=== PATIENT | male | born 1985 | race Caucasian/White ===

== ENCOUNTER 2017-04-12 15:53 | Emergency (ER) | payer OTHER ==
[~2017-04-12] VITALS: Ht 180.3 cm; Wt 99.8 kg
[2017-04-12] MEDS ORDERED: MELATONIN3 M4 PO (16:10)
[2017-04-12] MEDS ORDERED: BENADRYL25 MG PO (16:10)
[2017-04-12] MEDS ORDERED: VITAMIN D1000 UNI1 PO (16:10)
[2017-04-12] MEDS ORDERED: PRE WORKOUT PO (16:12)
[2017-04-12] MEDS ORDERED: ASPIRIN EC81 M1 PO (16:13)
--- NOTE | 2017-04-12 17:04 | ED NEURO DEFICIT/STROKE ---
History of Present Illness General Chief Complaint: Neuro Symptoms/ Deficit Stated Complaint: LOSS OF SOME VISION, S/P TORO 04/11 Source: patient Exam Limitations: no limitations Allergies Coded Allergies: venom-honey bee (ANAPHYLAXIS 04/12/17) Reconcile Medications Aspirin (Ecotrin*) 81 MG TABLET. 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 STATES HE WAS LIFTING AND SUDDENLY LOST PERIPHERAL VISION IN R EYE - VISION IS NOW 90% IMPROVED BUT PT STATES "STILL OFF". STATES HEADACHE IS BETTER. DENIES ANY OTHER COMPAINTS. WAS SENT TO ED BY DOCTOR COVERING FOR DR ROSARIO. SPEAKING CLEARLY WITH NO DEFICITS NOTED. Triage Nurses Notes Reviewed? yes Onset: Abrupt Duration: day(s): (1), IMPROVED Timing: recent history Altered Sensations: NONE Vision Problem? Yes Glaucoma? No Baseline: alert, oriented x 3 HPI: 31-year-old male comes into emergency room for further evaluation of headache and blurry vision. Patient reports that while weightlifting yesterday he started to experience a moderate to severe headache that occurred over the course of 10-15 minutes. He reports that he was then associated with some blurry peripheral vision out of his right eye. The blurry peripheral vision has improved by about 90% and his headache has resolved. He still reports some residual blurry vision out of the right eye in the periphery. Patient admits to finishing his work out yesterday. Patient was doing a pre-workout drink with associated heavy lifting. He denies any headache currently. Denies any slurring of words or confusion at the moment. Denies any weakness or numbness or tingling. Denies any prior history of this ever happening. Denies any other associated symptoms. (KANNAN GUTIERREZ,JENARO) Vital Signs & Intake/Output Vital Signs & Intake/Output Vital Signs Date Time Temp Pulse Resp B/P B/P Pulse O2 O2 Flow FiO2 Mean Ox Delivery Rate 04/12 1839 98.2 74 16 133/74 98 Room Air 04/12 1728 97 Room Air 04/12 1558 98.8 78 16 139/78 98 Room Air Past History Travel History Traveled to [place] past 21 day No Medical History Any Pertinent Medical History? 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 No (JENARO WALDRON) Review of Systems Review of Systems Constitutional: Reports: no symptoms. EENTM: Reports: see HPI. Respiratory: Reports: no symptoms. Cardiovascular: Reports: no symptoms. GI: Reports: no symptoms. Genitourinary: Reports: no symptoms. Musculoskeletal: Reports: no symptoms. Skin: Reports: no symptoms. Neurological/Psychological: Reports: see HPI. Hematologic/Endocrine: Reports: no symptoms. Immunologic/Allergic: Reports: no symptoms. All Other Systems: Reviewed and Negative (JENARO WALDRON) Physical Exam Physical Exam General Appearance: well developed/nourished, no apparent distress, alert, awake Head: atraumatic, normal appearance Eyes: Bilateral: normal appearance, PERRL, EOMI, other (NORMAL FUNDUSCOPIC EXAM). Ears, Nose, Throat: normal ENT inspection, moist mucous membrane, hearing grossly normal Neck: normal inspection, full range of motion Respiratory: normal breath sounds, no respiratory distress Cardiovascular: regular rate/rhythm Gastrointestinal: normal bowel sounds, soft, non-tender Back: normal inspection, normal range of motion Extremities: normal range of motion Psychiatric: awake, alert, oriented x 3 Cranial Nerves: normal hearing, normal speech, PERRL Coordination/Gait: normal finger to nose, normal gait Motor/Sensory: no motor/sensory deficits Skin: intact, normal color Comments: PERRL, extraocular muscles intact, alert and oriented 3, normal speech, normal gait, no dysmetria, cranial nerves II through XII intact, no pronator drift, 5 out of 5 strength upper and lower extremity, gross sensation intact, no motor deficits, [id number] intact, sharp and dull sensation intact IN fei bilaterally, upper extremities, lower extremity, Core Measures CVA/TIA Diagnosis: No Severe Sepsis Present: No Septic Shock Present: No (JENARO WALDRON) Progress Differential Diagnosis: acute glaucoma, Teixeira's Palsy, drug intoxication, electrolyte imbalance, encephalitis, hypoglycemia, intracranial Hem., intracranial mass/tumor, meningitis, migraine TORO, seizure disorder, stroke, subarachnoid Hem., vertebrobasilar insuff., RETINAL ARTERY HEMORRHAGE, LUCUNAR INFARCT Plan of Care: Orders Procedure Date/time Status CT HEAD WO IV CONTRAST 04/12 1637 Active Diagnostic Imaging: Viewed by Me: CT Scan. Discussed w/RAD: CT Scan. Radiology Impression: SERVICE DATE: 04/12/17 EXAM TYPE: CAT - CT HEAD WO IV CONTRAST EXAMINATION: CT HEAD WITHOUT CONTRAST CLINICAL INFORMATION: AT TIME WHICH HAS SINCE RESOLVED, LINGERING : BLURRING VISION, Presumptive Dx: RIGHT PERIPHERAL VISION BLURRY, R/O BLEED Signs Symptoms: HAPPENED DURING WORK OUT YESTERDAY, HAD SEVERE TORO COMPARISON: None TECHNIQUE: Contiguous axial imaging was performed from the skull base to vertex without intravenous administration of contrast. DLP: 695.14 mGy-cm FINDINGS: There is no evidence of acute intracranial hemorrhage or territorial infarction. No abnormal mass effect or midline shift is seen. Marcos to white matter differentiation is well preserved. No extra-axial fluid collections are identified. The ventricles are normal in size. There is no abnormal attenuation within the brain parenchyma. The osseous structures and soft tissues are normal. The mastoid air cells and visualized portions of the paranasal sinuses are well aerated. IMPRESSION: No acute intracranial pathology. DICTATED BY: AVINASH PETE MD DATE/TIME DICTATED:04/12/171699 PHP ENGINEER:PHUONG DATE/TIME TRANSCRIBED:04/12/171699 Initial ED EKG: none Comments: 04/12/2017 7:16:[address] Teixeira and myself were at bedside for about 10 minutes discussing plan of care. Patient was educated on subarachnoid hemorrhage and the fact that we wanted to get a lumbar puncture to rule this out. We explained to the patient that this is potentially life-threatening. he clinically looks well. Is nontoxic-appearing. Alert and oriented. Capable of making his own medical decisions. Patient understands everything that has been explained to him. Despite this he does not want to get the lumbar puncture and would rather go home. His symptoms have significantly improved. He has not had any headache today. His peripheral vision blurriness has almost resolved. He was recommended to follow-up with deputy k 9 in his primary care doctor. He was seen and evaluated by Dr. Teixeira. The patient understands the risks. He was told to return immediately if he decides he wants the lumbar puncture. (KANNAN GUTIERREZ,JENARO) Departure Departure Disposition: HOME OR SELF CARE Condition: Stable Clinical Impression Primary Impression: Blurred vision, right eye Secondary Impressions: Headache Referrals: MARLENE SMALLS,MILEY (PCP/Family) SHABBIR SMALLS,ARIADNA Friedn Additional Instructions: At this time you have decided to decline lumbar puncture. The lumbar puncture was to rule out a subarachnoid hemorrhage which is potentially life-threatening. Please follow-up with deputy k 9 and neurologist. Follow-up with your primary care doctor. Return if any concerns worsening symptoms or he decides he wants a lumbar puncture done. You understand everything that has been explained to him that subarachnoid hemorrhage is a potentially life-threatening. Please go over all results of today's visit with your primary care doctor. Contact your primary care doctor to let them know you were here in the emergency room. There may be nonspecific findings which may not be related to your visit today here in the emergency room but may require further evaluation and chronic monitoring by your primary care doctor. If you had a laceration today the chance of foreign body always remains. You should follow-up with your primary care doctor for recheck in 3-5 days for a wound check. If you had an x-ray done there is a chance that a fracture could have been missed on initial read and you should follow-up with your primary care doctor for repeat x-rays if symptoms persist. If your blood pressure was elevated here in the emergency room please have rechecked by her primary care doctor within the next 48 hours by your primary care doctor. If you were prescribed a narcotic here in the emergency room or any type of controlled substances you're not allowed to drive while taking this medication or operate any type of heavy machinery. Narcotics can make you feel lightheaded dizziness nausea and can cause constipation. You may need to picking machine operator a stool softener. Thank you for choosing [facility] emergency room. Please return to the emergency room immediately if you have any other concerns worsening of symptoms. Departure Forms: Customer Survey General Discharge Information (JENARO WALDRON) PA/AUTHORS MOTIVATIONAL Co-Sign Statement Statement: ED Attending supervision documentation- [X] I saw and evaluated the patient. I have also reviewed all the pertinent lab results and diagnostic results. I agree with the findings and the plan of care as documented in the PA's/AUTHORS MOTIVATIONAL's documentation. I was also present during the explanation of the need for lumbar puncture to definitively rule out subarachnoid hemorrhage. The potentially fatal nature of a second bleeding episode after a "sentinel" bleed was discussed. Jorge initially decided to have the lumbar puncture but has now declined to have it done. 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 [] I have reviewed the ED Record and agree with the PA's/AUTHORS MOTIVATIONAL's documentation. [] Additions or exceptions (if any) to the PAs/AUTHORS MOTIVATIONAL's note and plan are summarized below: [] (LOUIS MSALLS,AZEB Lima) ED Attending Observation Initial Observation Note: I have seen and personally examined JORGE RAMSEY on 04/12/17 at 1710. I agree with the current emergency department documentation. The disposition (admission or discharge) is uncertain at this time, he needs a period of observation for the following reason(s): The ED Nurse caring for this patient has been personally informed as to what the patient is being observed for. (JENARO WALDRON)
[2017-04-12 18:39] VITALS: BP 133/74
== END 2017-04-12 19:09 ==
LOC: ERH 15:53
DX: H53.8 Other visual disturbances (principal); R51 Headache